=== PATIENT | male | born 1945 | race Two or more races ===

== ENCOUNTER 2020-09-22 12:08 | Outpatient (REF) | payer MEDICARE, SELFPAY ==
[2020-09-22 14:05] LABS: Cholesterol 100 mg/dL; HDL Cholesterol 36 mg/dL; LDL Cholesterol Calculated 29 mg/dl; Triglycerides 178 mg/dL
[2020-09-22 14:09] LABS: Creatinine Urine 86.28 mg/dL; Microalbum/Creatinine Ratio Ur 18.5 ug/mg cr
[2020-09-22 15:10] LABS: Prostate Specific Antigen 5.93 ng/mL (<0.05-4.0)
== END 2020-09-22 12:09 | disposition home or self-care (01) ==
LOC: HO.LAB 12:08
PROVIDERS: PCP Internal Medicine; Visit Provider Urology
DX: C61 Malignant neoplasm of prostate (principal); R97.20 Elevated prostate specific antigen [PSA]; E78.2 Mixed hyperlipidemia; I10 Essential (primary) hypertension; R73.9 Hyperglycemia, unspecified
CPT/HCPCS: 80061; 82043; 84153

== ENCOUNTER → 2020-11-04 14:14 | Outpatient (BNVA) | payer MEDICARE, SELFPAY | PROVIDERS: PCP Internal Medicine; Referring Provider Internal Medicine; Visit Provider Internal Medicine | DX: Z01.810 Encounter for preprocedural cardiovascular examination (principal); I25.119 Atherosclerotic heart disease of native coronary artery with unspecified angina pectoris | CPT/HCPCS: 93005; 99212 ==

== ENCOUNTER → 2020-11-25 09:09 | Outpatient (REF) | payer MEDICARE, SELFPAY ==
--- NOTE | 2020-11-25 | NM_ITS ---
Myocardial perfusion study Indication: Atherosclerotic cardiovascular disease to evaluate for myocardial ischemia Technique: The patient was brought in for a Lexiscan perfusion study on 11/25/2020. Patient performed low-level exercise and was injected 0.4 mg of Lexiscan intravenously. Within a minute of injection, 35 mCi of sestamibi was given intravenously. Images were obtained using the SPECT gamma camera interlaced with the gating device. Images were obtained in supine position. Resting perfusion study was performed on 11/30/2020. Patient was administered 31 mCi of sestamibi intravenously at rest. Images were then obtained in supine position. 35 Images obtained with and without CT attenuation. Total DLP 73 mGy-cm. Images were processed with the software and compared side to side in short axis, horizontal long axis and vertical long axis views. Findings: The stress perfusion study showed non attenuated images show mildly reduced uptake in the inferior, inferolateral and inferoseptal wall of the LV myocardium. Remainder of the LV myocardium is normally perfused. Attenuation corrected images show mildly reduced uptake in the apex of the LV myocardium. The gated study shows normal LV systolic function with calculated LVEF of 65%. LV cavity is normal in size. The gated study shows normal systolic wall thickening and contraction of segments. Resting study shows no change in perfusion pattern compared to stress perfusion study. Gating at rest reveals normal systolic wall motion with ejection fraction at 64%. The findings are consistent with normal myocardial perfusion. NM/NM naomi perf SPECT rest & str Impression: 1. Myocardial perfusion imaging study shows normal myocardial perfusion 2. Gated LVEF is 65% 3. Transient ischemic dilatation not present EKG is nondiagnostic for ischemia
--- NOTE | 2020-11-25 09:14 | CA_ITS ---
Transthoracic Echocardiogram Patient (Last, First, Middle): Fredy Ramirez, Gender: Male Date of : 1945 Age: 75 Procedure Date: 11/25/2020 Procedure Type: Transthoracic Echocardiogram Location: OP Height: 187.96 cm Weight: 90.72 kg BSA: 2.17 m2 Heart Rate: bpm BP: 138 / 80 mmHg Engine Assembly Supervisor: PAWAN Referring MD: Kt Cotter MD Symptoms: I25.10 - Atherosclerotic heart disease of [place] coronary artery without angina pectoris Study Quality: Good ECG Rhythm: Sinus Conclusions: - The left ventricular systolic function is normal. The visually estimated ejection fraction is between 60-65%. - No obvious valvular pathology seen on this study. Findings Left Ventricle Normal left ventricular cavity size. There is normal left ventricular wall thickness. The left ventricular systolic function is normal. The visually estimated ejection fraction is between 60-65%. There is no evidence of regional wall motion abnormalities. Based on LA size, normal RVSP there is no significant diastolic dysfunction. Tissue Doppler was not performed. Right Ventricle Normal right ventricular cavity size and systolic function. Atria The left atrium is normal in size. The right atrium is normal in size. Aortic Valve There is a normal trileaflet aortic valve. There is mild calcification of the aortic valve. There is no aortic valve stenosis. There is no aortic valve regurgitation. Mitral Valve The mitral valve appears normal. There is trace mitral valve regurgitation. There is no mitral valve stenosis. Pulmonic Valve The pulmonic valve was not well visualized. Tricuspid Valve Normal tricuspid valve structure. There is trace tricuspid valve regurgitation. The pulmonary artery systolic pressure is normal. Great Vessels The aortic annulus, sinuses of valsalva, and asc aorta are normal in size. Venous The inferior vena cava is normal in size and collapses greater than 50% with inspiration. Pericardium/Pleural There is no evidence of pericardial effusion. Prior Study Comparison No significant change compared to prior study dated: 12/20/2017. Recommendations, Care & Conclusions No obvious valvular pathology seen on this study. Measurements 2D Linear Measurements IVSd: 1.04 0.6-0.9/0.6-1.0 cm LVIDd: 5.25 3.9-5.3/4.2-5.9 cm LVIDd Index: 2.42 2.4-3.2/2.2-3.1 cm/m2 LVIDs: 2.94 2.0-3.6 cm LVPWd: 0.90 0.7-1.1 cm Ao Root: 3.00 2.1-3.5 cm LA Diam: 3.40 2.7-3.8/3.0-4.0 cm LAIDs Index: 1.57 1.5-2.3 cm/m2 LV Mass: 236.39 67-162/88-224 g LV Mass Index: 108.94 43-95/49-115 g/m2 LVOT Diam: 2.20 3.0+(-)1.3 cm 2D Systolic Function EF 4C: 61.70 >55% EF 2C: 60.00 >55% EF BiP: 60.40 >55% Mitral Valve MV Pk E: 0.83 MV PK A: 0.96 MV Decel Time: 116.00 E/A: 0.90 PHT: 34.00 MVA PHT: 6.47 Decel [place]: 7.14 Aortic Valve AoV Pk Fei: 1.74 AoV Pk Grad: 12.00 LVOT LVOT Pk Fei: 0.83 LVOT Mn Fei: 0.58 LVOT VTI: 0.19 LVOT Pk Grad: 3.00 LVOT Mn Grad: 2.00 LVOT Diam: 2.20 LVOT Area: 3.80 Diastolic Function MV Pk E: 0.83 MV Pk A: 0.96 E/A: 0.90 Tricuspid Valve TR Pk Fei: 2.38 TR Pk Grad: 23.00 RA Press: 3.00 RVSP: 26.00 Great Vessels Aorta Ao Root-2D: 3.00 2.0-3.7 cm Ao Asc: 3.60 2.1-3.4 cm Updated in Other Vendor System with Status of Final Kt Cotter MD electronically signed on 11/28/2020 12:46:32 PM with status of Final
--- NOTE | 2020-11-25 09:14 | CA_ITS ---
Acquisition Time: 2020-11-25 11:13:40 Total Exercise Time: 00:02:00 Test Indications: Chest Pain Medications: SEE H Protocol: LEXISCAN Max HR: 111 BPM 76% of Pred: 145 BPM Max BP: 122/078 mmHG Max Work Load: 1.0 METS Pharmacological stress test using Lexiscan while sitting and kicking his legs. Pt tolerated well, denies any anginal sx. EKG without any arrhythmias. Non-diagnostic for ischemia. Nuclear images to follow. Normotensive response to test. Test reviewed with Dr. Cotter. Referred By: Kt Cotter Overread By: Chacho Connell
== END ==
LOC: HO.CARD 09:09
PROVIDERS: Visit Provider Internal Medicine
DX: I20.9 Angina pectoris, unspecified (principal)
CPT/HCPCS: 78452; 93017; 93306; A9500; J0280; J2785

== ENCOUNTER → 2020-12-02 15:53 | Outpatient (BNVA) | payer MEDICARE, SELFPAY | PROVIDERS: PCP Internal Medicine; Visit Provider Urology | DX: C61 Malignant neoplasm of prostate (principal) | CPT/HCPCS: 99212 ==

== ENCOUNTER → 2020-12-14 15:17 | Outpatient (BNVA) | payer MEDICARE, SELFPAY | PROVIDERS: PCP Internal Medicine; Visit Provider Internal Medicine | DX: Z01.810 Encounter for preprocedural cardiovascular examination (principal); I25.10 Atherosclerotic heart disease of native coronary artery without angina pectoris; E11.9 Type 2 diabetes mellitus without complications; I10 Essential (primary) hypertension; E78.5 Hyperlipidemia, unspecified | CPT/HCPCS: 99212 ==

== ENCOUNTER 2021-01-28 11:29 | Outpatient (REF) | payer MEDICARE, SELFPAY ==
[2021-01-28 13:16] LABS: Estimated Average Glucose 206 mg/dL; Hemoglobin A1c % 8.8 %
[2021-01-28 13:25] LABS: Alanine Aminotransferase 18 U/L (0-40); Albumin Level 4.3 g/dL (3.5-5.0); Alkaline Phosphatase 98 U/L (39-117); Anion Gap 16 (12-20); Aspartate Amino Transferase 20 U/L (5-37); Bilirubin Total 0.2 mg/dL (0.0-1.0); Blood Urea Nitrogen 27 mg/dL (9-16); Calcium 9.3 mg/dL (8.4-10.2); Carbon Dioxide 27 mmol/L (22-29); Chloride 100 mmol/L (96-108); Estimated Glomerular Filt Rate > 60; Glucose Random 163 mg/dL (60-115); Sodium 138 mmol/L (135-145); Total Protein 7.4 g/dL (6.5-8.0)
[2021-01-28 13:46] LABS: Thyroid Stimulating Hormone 1.11 uIU/mL (0.32-4.0)
[2021-01-28 13:52] LABS: Prostate Specific Antigen 8.79 ng/mL (<0.05-4.0)
== END 2021-01-28 11:30 | disposition home or self-care (01) ==
LOC: HO.LAB 11:29
PROVIDERS: Absent Provider Urology; PCP Internal Medicine; Visit Provider Internal Medicine
DX: E03.9 Hypothyroidism, unspecified (principal); E11.65 Type 2 diabetes mellitus with hyperglycemia; I10 Essential (primary) hypertension; C61 Malignant neoplasm of prostate; Z12.5 Encounter for screening for malignant neoplasm of prostate
CPT/HCPCS: 36415; 80053; 83036; 84153; 84443

== ENCOUNTER 2021-02-10 09:05 | Day surgery (SDC) | payer MEDICARE, SELFPAY ==
[2021-02-04 11:18] VITALS: BMI 25.9
--- NOTE | 2021-02-09 10:03 | HO.ANESPROP2 ---
Documented by User: Claudia Mg 02/09/21 10:05 HPI - Anesthesia Eval Consult details Narrative: 75yo M for Colonoscopy Stable CAD - cardiac [facility] Active Problems Active Problems: All Active Problems (Updated 02/04/21 @ 11:18 by Kelle Barnes) Angina pectoris (Acute) Preoperative cardiovascular examination (Acute) Other and unspecified hyperlipidemia (Acute) Essential hypertension (Acute) Type 2 diabetes mellitus with unspecified complications (Acute) Prostate CA (Acute) Atherosclerotic cardiovascular disease (Acute) Past Medical History Medical History Arthritis Asthma Atherosclerotic cardiovascular disease CVA (cerebral vascular accident) Depression Essential hypertension GERD (gastroesophageal reflux disease) Other and unspecified hyperlipidemia Prostate CA Type 2 diabetes mellitus with unspecified complications Family History Family History Father Cancer Mother Cardiac disease Surgical History Surgical History H/O colonoscopy History of prostate surgery Hx of cardiac catheterization Hx of prostate biopsy Social History Social History Smoking Status: Former smoker Smoking Quit Date: >10 yr ago Use of substances other than those prescribed or required for medical reasons: No Advance Directives Information Provided: No Meds Allergies Allergy/AdvReac Type Severity Reaction Status Date / Time acebutolol Allergy Unknown Verified 11/13/16 00:00 almond Allergy Unknown ITCHINESS Unverified 08/12/20 15:13 apple [APPLE] Allergy Unknown ITCHINESS Unverified 08/12/20 15:13 kiwi [KIWI] Allergy Unknown ITCHINESS Unverified 08/12/20 15:13 pear [PEAR] Allergy Unknown ITCHINESS Unverified 08/12/20 15:13 strawberry [STRAWBERRY] Allergy Unknown ITCHINESS Unverified 08/12/20 15:13 avocado [AVOCADO] AdvReac Intermediate ITCHINESS Unverified 08/12/20 15:13 Iodinated Contrast Media AdvReac Unknown SHAKING Unverified 08/12/20 15:13 [IV Dye, Iodine Containing] ivp dye Allergy Unknown Uncoded 05/26/20 00:00 Home Medications Medication Instructions Recorded Confirmed Last Taken Type acetaminophen 650 mg 650 mg PO TID tab 11/04/20 02/04/21 Unknown History tablet,extended release albuterol sulfate 90 mcg/actuation 90 mcg INHALATION Q4H PRN 11/04/20 02/04/21 Unknown History aerosol inhaler aspirin 81 mg tablet,delayed 81 mg PO DAILY 11/04/20 02/04/21 Unknown History release glipizide 5 mg tablet, extended 5 mg PO DAILY 11/04/20 02/04/21 Unknown History release 24 hr levothyroxine 137 mcg tablet 137 mcg PO DAILY 11/04/20 02/04/21 Unknown History losartan 100 1 tab PO DAILY 11/04/20 02/04/21 Unknown History mg-hydrochlorothiazide 25 mg tablet metformin 500 mg tablet,extended 1,000 mg PO BID 11/04/20 02/04/21 Unknown History release 24 hr pantoprazole 40 mg tablet,delayed 40 mg PO DAILY 11/04/20 02/04/21 Unknown History release rosuvastatin 40 mg tablet 40 mg PO DAILY 11/04/20 02/04/21 Unknown History sertraline 50 mg tablet 50 mg PO DAILY 11/04/20 02/04/21 Unknown History sitagliptin 100 mg tablet 100 mg PO DAILY 11/04/20 02/04/21 Unknown History tamsulosin 0.4 mg capsule 0.4 mg PO DAILY 11/04/20 02/04/21 Unknown History Exam Exam Date and Time: February 09, 2021 1003 Height,Weight and Vital Signs: Height 6 ft 2 in Weight 91.5 kg Pertinent Lab Results Pertinent Lab Results: Laboratory Tests 01/28/21 12:05 Sodium 138 Potassium 5.0 Chloride 100 Carbon Dioxide 27 BUN 27 H Creatinine 0.96 Narrative Narrative: Per cardiology clearance note: In the cardiac catheterization from 2012, he had a 65% lesion in the mid LAD; mild disease in the left main and circumflex; 60% mid 1st diagonal; culprit lesion was in the 2nd diagonal but not intervened. Echocardiogram 10/2020-LVEF 60-65%; no significant valvular pathology. Myocardial perfusion imaging study 10/2020-normal perfusion with normal gated LVEF. EKG 10/2020 NSR @ [address] abnormality Assessment and Plan Assessment Anesthesia Assessment: Chart Reviewed Documented by User: Maldonado Case 02/10/21 09:59 PMFSH Past Medical History Medical History Arthritis Asthma Atherosclerotic cardiovascular disease CVA (cerebral vascular accident) Depression Essential hypertension GERD (gastroesophageal reflux disease) Other and unspecified hyperlipidemia Prostate CA Type 2 diabetes mellitus with unspecified complications Family History Family History Father Cancer Mother Cardiac disease Surgical History Surgical History H/O colonoscopy History of prostate surgery Hx of cardiac catheterization Hx of prostate biopsy Social History Social History Smoking Status: Former smoker Smoking Quit Date: >10 yr ago Use of substances other than those prescribed or required for medical reasons: No Advance Directives Information Provided: No Meds Allergies Allergy/AdvReac Type Severity Reaction Status Date / Time acebutolol Allergy Unknown Verified 11/13/16 00:00 almond Allergy Unknown ITCHINESS Unverified 08/12/20 15:13 apple [APPLE] Allergy Unknown ITCHINESS Unverified 08/12/20 15:13 kiwi [KIWI] Allergy Unknown ITCHINESS Unverified 08/12/20 15:13 pear [PEAR] Allergy Unknown ITCHINESS Unverified 08/12/20 15:13 strawberry [STRAWBERRY] Allergy Unknown ITCHINESS Unverified 08/12/20 15:13 avocado [AVOCADO] AdvReac Intermediate ITCHINESS Unverified 08/12/20 15:13 Iodinated Contrast Media AdvReac Unknown SHAKING Unverified 08/12/20 15:13 [IV Dye, Iodine Containing] ivp dye Allergy Unknown Uncoded 05/26/20 00:00 Home Medications Medication Instructions Recorded Confirmed Last Taken Type acetaminophen 650 mg 650 mg PO TID tab 11/04/20 02/04/21 Unknown History tablet,extended release albuterol sulfate 90 mcg/actuation 90 mcg INHALATION Q4H PRN 11/04/20 02/04/21 Unknown History aerosol inhaler aspirin 81 mg tablet,delayed 81 mg PO DAILY 11/04/20 02/04/21 Unknown History release glipizide 5 mg tablet, extended 5 mg PO DAILY 11/04/20 02/04/21 Unknown History release 24 hr levothyroxine 137 mcg tablet 137 mcg PO DAILY 11/04/20 02/04/21 Unknown History losartan 100 1 tab PO DAILY 11/04/20 02/04/21 Unknown History mg-hydrochlorothiazide 25 mg tablet metformin 500 mg tablet,extended 1,000 mg PO BID 11/04/20 02/04/21 Unknown History release 24 hr pantoprazole 40 mg tablet,delayed 40 mg PO DAILY 11/04/20 02/04/21 Unknown History release rosuvastatin 40 mg tablet 40 mg PO DAILY 11/04/20 02/04/21 Unknown History sertraline 50 mg tablet 50 mg PO DAILY 11/04/20 02/04/21 Unknown History sitagliptin 100 mg tablet 100 mg PO DAILY 11/04/20 02/04/21 Unknown History tamsulosin 0.4 mg capsule 0.4 mg PO DAILY 11/04/20 02/04/21 Unknown History Exam Airway Mallampati Class: II TM Dist: >3cm Neck ROM: Full Loose/Missing/Broken Teeth: Yes Heart: [id number] Lungs: cta b/l Assessment and Plan Assessment Anesthesia Assessment: Anesthesia Plan Discussed, PAT Visit and Chart Reviewed Final Anesthetic Review NPO: Yes ASA Class: III Final Preanesthetic Review: No Changes in Pt Med Stat, Meds/Allgs Chart Reviewed, Consent Obtained/Reviewed and Anes Risks/Benef Reviewed Patient Risk: Intermediate Procedure Risk: Low Assessment/Block/Sedation in SS: Assess/Block/Sedation-SS Anesthetic Plan Anesthetic Plan: MAC: and Agree w/ Assess. and Plan Disposition: Standard PACU
[2021-02-10 09:41] VITALS: BP 140/70; PULSE 62; RESP 18; TEMP 36.7; O2SAT 95
[2021-02-10 09:46] LABS: Glucose, Whole Blood 174 mg/dL (60-115)
[2021-02-10] MEDS: Lactated Ringers 1,000 ML 50 ML IV (10:02)
--- NOTE | 2021-02-10 10:32 | P.HPSUR_ITS ---
Pre-Procedural Eval Section B Chief Complaint: Screening Details of Present Illness: Colon cancer screening No clinical changes from . Cardiac clearance obtained Relevant Family History (Specify if Yes): No Relevant Social History: None Present Medications: see Short Stay [facility] assessment Medical History: Significant History (CAD; Diabetes, Prostate CA, Asthma, Stroke-1992) History of Previous Operations: Relevant previous surgery/procedure and date(s) (2008--Colonoscopy(N) diverticulosis.) Allergies: Allergies Allergy/AdvReac Type Severity Reaction Status Date / Time acebutolol Allergy Unknown Verified 11/13/16 00:00 almond Allergy Unknown ITCHINESS Unverified 08/12/20 15:13 apple [APPLE] Allergy Unknown ITCHINESS Unverified 08/12/20 15:13 kiwi [KIWI] Allergy Unknown ITCHINESS Unverified 08/12/20 15:13 pear [PEAR] Allergy Unknown ITCHINESS Unverified 08/12/20 15:13 strawberry [STRAWBERRY] Allergy Unknown ITCHINESS Unverified 08/12/20 15:13 avocado [AVOCADO] AdvReac Intermediate ITCHINESS Unverified 08/12/20 15:13 Iodinated Contrast Media AdvReac Unknown SHAKING Unverified 08/12/20 15:13 [IV Dye, Iodine Containing] ivp dye Allergy Unknown Uncoded 05/26/20 00:00 Review of Systems Sugical H&P ROS: Negative: Constitution, Cardiovascular, Respiratory and Gastrointestinal Exam Surgical H&P Exam: Normal: HEENT, Normal: Heart, Normal: Lungs and Normal: Extremities Plan Diagnosis/Plan: Unchanged I have reviewed the history and physical and performed a pertinent physical examination on my patient. No changes have occurred unless specified.yes
[2021-02-10 11:11] VITALS: BP 114/58; PULSE 56; RESP 16; TEMP 36.3; O2SAT 98
--- NOTE | 2021-02-10 11:11 | PM.OP ---
Brief Operative Note Date of Service: 02/10/21 Pre-op diagnosis: Colon cancer screening--10years Post-op diagnosis: other (Polyp, Diverticulosis) Procedure: Colonoscopy with excisional polypectomy Implants: NONE Surgeon: Marti Rowland MD Anesthesia: MAC (Cuff,Burling And Joining Supervisor) Estimated blood loss (mL): 5 Pathology: other (20 cm polyp) Condition: stable Disposition: PACU
[2021-02-10 11:26] VITALS: BP 138/50; PULSE 64; RESP 16; TEMP 36.3; O2SAT 95
--- NOTE | 2021-02-10 12:08 | P.OP_ITS ---
Operative Note Operative Note Date of Service: 02/10/21 Narrative: Pre op diagnosis: Colon cancer screening--10years Post-op diagnosis: other (Polyp, Diverticulosis) Procedure: Colonoscopy with excisional polypectomy Implants: NONE Surgeon: Marti Rowland MD Anesthesia: MAC (Cuff,Equine Pharmacology Technician) VICENTA: prostate, smooth, ?right lobe 50% increase size Scope easily advanced into rectosigmoid, descending transverse colon. Left sided diverticulosis was identified. Advanced through hepatic flexure into cecum. Appendiceal orifice seen, ileocecal valve well seen. PREP: EXCELLENT. Scope withdrawn, good rotational views --polyp noted curve @ 20cm. Removed excisionally with cold bx forceps. Rest of colon was clear. ARV seen and normal. Patient tolerated procedure well. Estimated blood loss (mL): 5 Pathology: other (20 cm polyp) Condition: stable Disposition: PACU Patient will have a short followup visit to review findings. He has significant comorbidities so repeat asymptomatic screening may not be appropriat @ his age.
== END 2021-02-10 12:05 | disposition home or self-care (01) ==
PROVIDERS: PCP Internal Medicine; Visit Provider Internal Medicine Gastroenterology
PROC: 0DJD8ZZ Inspection of Lower Intestinal Tract, Via Natural or Artificial Opening Endoscopic (ICD-10-PCS; CPT 45378; principal; 2021-02-10 10:20)
DX: Z12.11 Encounter for screening for malignant neoplasm of colon (principal); K63.5 Polyp of colon; K57.30 Diverticulosis of large intestine without perforation or abscess without bleeding; K21.9 Gastro-esophageal reflux disease without esophagitis; J45.909 Unspecified asthma, uncomplicated; I25.10 Atherosclerotic heart disease of native coronary artery without angina pectoris; E11.9 Type 2 diabetes mellitus without complications; Z86.73 Personal history of transient ischemic attack (TIA), and cerebral infarction without residual deficits; Z85.46 Personal history of malignant neoplasm of prostate
CPT/HCPCS: 45380; 82947; 88305

== ENCOUNTER → 2021-02-17 13:14 | Outpatient (BNVA) | payer MEDICARE, SELFPAY | PROVIDERS: PCP Internal Medicine; Visit Provider Urology | DX: Z13.89 Encounter for screening for other disorder (principal) | CPT/HCPCS: 99212 ==

== ENCOUNTER 2021-07-05 13:40 | Outpatient (REF) | payer MEDICARE, SELFPAY ==
[2021-07-05 14:27] LABS: Estimated Average Glucose 252 mg/dL; Hemoglobin A1c % 10.4 %
[2021-07-05 14:52] LABS: Alanine Aminotransferase 18 U/L (0-40); Albumin Level 4.4 g/dL (3.5-5.0); Alkaline Phosphatase 110 U/L (39-117); Anion Gap 15 (12-20); Aspartate Amino Transferase 25 U/L (5-37); Bilirubin Total < 0.2 mg/dL (0.0-1.0); Blood Urea Nitrogen 27 mg/dL (9-16); Calcium 10.2 mg/dL (8.4-10.2); Carbon Dioxide 26 mmol/L (22-29); Chloride 100 mmol/L (96-108); Estimated Glomerular Filt Rate 57; Glucose Random 252 mg/dL (60-115); Potassium 5.1 mmol/L (3.3-5.1); Sodium 136 mmol/L (135-145); Total Protein 7.9 g/dL (6.5-8.0)
== END 2021-07-05 13:41 | disposition home or self-care (01) ==
LOC: HO.LAB 13:40
PROVIDERS: Absent Provider Internal Medicine; PCP Internal Medicine; Visit Provider Urology
DX: N40.1 Benign prostatic hyperplasia with lower urinary tract symptoms (principal); N13.8 Other obstructive and reflux uropathy; C61 Malignant neoplasm of prostate; E03.9 Hypothyroidism, unspecified; E11.65 Type 2 diabetes mellitus with hyperglycemia; I10 Essential (primary) hypertension
CPT/HCPCS: 36415; 80053; 83036; 84153

== ENCOUNTER → 2021-10-12 15:05 | Outpatient (BNVA) | payer MEDICARE, SELFPAY | PROVIDERS: PCP Internal Medicine; Visit Provider Internal Medicine | DX: I25.10 Atherosclerotic heart disease of native coronary artery without angina pectoris (principal); I10 Essential (primary) hypertension; E11.8 Type 2 diabetes mellitus with unspecified complications; E78.5 Hyperlipidemia, unspecified; R00.2 Palpitations | CPT/HCPCS: 93005; 99212 ==

== ENCOUNTER 2021-10-25 12:12 | Outpatient (REF) | payer MEDICARE, SELFPAY ==
[2021-10-25 13:34] LABS: Estimated Average Glucose 252 mg/dL; Hemoglobin A1c % 10.4 %
[2021-10-25 14:17] LABS: Creatinine Urine 68.58 mg/dL; Microalbum/Creatinine Ratio Ur 27.7 ug/mg cr
[2021-10-25 14:25] LABS: Alanine Aminotransferase 14 U/L (0-40); Albumin Level 4.4 g/dL (3.5-5.0); Alkaline Phosphatase 106 U/L (39-117); Anion Gap 15 (12-20); Aspartate Amino Transferase 18 U/L (5-37); Bilirubin Total 0.4 mg/dL (0.0-1.0); Blood Urea Nitrogen 27 mg/dL (9-16); Calcium 9.8 mg/dL (8.4-10.2); Carbon Dioxide 26 mmol/L (22-29); Chloride 100 mmol/L (96-108); Cholesterol 108 mg/dL; Estimated Glomerular Filt Rate > 60; Glucose Random 234 mg/dL (60-115); HDL Cholesterol 32 mg/dL; LDL Cholesterol Calculated 24 mg/dl; Potassium 4.9 mmol/L (3.3-5.1); Sodium 136 mmol/L (135-145); Total Protein 7.7 g/dL (6.5-8.0); Triglycerides 262 mg/dL
[2021-10-25 14:44] LABS: Thyroid Stimulating Hormone 1.94 uIU/mL (0.32-4.0)
== END 2021-10-25 12:13 | disposition home or self-care (01) ==
LOC: HO.LAB 12:12
PROVIDERS: PCP Internal Medicine; Visit Provider Internal Medicine
DX: Z00.01 Encounter for general adult medical examination with abnormal findings (principal); E03.9 Hypothyroidism, unspecified; E11.65 Type 2 diabetes mellitus with hyperglycemia; I10 Essential (primary) hypertension
CPT/HCPCS: 36415; 80053; 80061; 82043; 83036; 84443

== ENCOUNTER 2021-11-15 12:35 | Outpatient (REF) | payer MEDICARE, SELFPAY ==
[2021-11-15 13:32] LABS: Estimated Average Glucose 237 mg/dL; Hemoglobin A1c % 9.9 %
[2021-11-15 13:42] LABS: Alanine Aminotransferase 14 U/L (0-40); Albumin Level 4.5 g/dL (3.5-5.0); Alkaline Phosphatase 92 U/L (39-117); Anion Gap 14 (12-20); Aspartate Amino Transferase 19 U/L (5-37); Bilirubin Total 0.4 mg/dL (0.0-1.0); Blood Urea Nitrogen 29 mg/dL (9-16); Calcium 9.9 mg/dL (8.4-10.2); Carbon Dioxide 27 mmol/L (22-29); Chloride 102 mmol/L (96-108); Estimated Glomerular Filt Rate > 60; Glucose Random 234 mg/dL (60-115); Potassium 4.6 mmol/L (3.3-5.1); Sodium 138 mmol/L (135-145); Total Protein 7.6 g/dL (6.5-8.0)
[2021-11-15 14:02] LABS: PSA,Total (Free>4and<10) 3.56 ng/mL (0.00-4.00)
== END 2021-11-15 12:36 | disposition home or self-care (01) ==
LOC: HO.LAB 12:35
PROVIDERS: Absent Provider Urology; PCP Internal Medicine; Visit Provider Internal Medicine
DX: Z12.5 Encounter for screening for malignant neoplasm of prostate (principal); C61 Malignant neoplasm of prostate; E03.9 Hypothyroidism, unspecified; E11.65 Type 2 diabetes mellitus with hyperglycemia; I10 Essential (primary) hypertension
CPT/HCPCS: 36415; 80053; 83036; 84153

== ENCOUNTER → 2021-11-16 13:21 | Outpatient (BNVA) | payer MEDICARE, SELFPAY | PROVIDERS: PCP Internal Medicine; Visit Provider Urology | DX: C61 Malignant neoplasm of prostate (principal) | CPT/HCPCS: 99212 ==

== ENCOUNTER → 2021-12-14 11:21 | Outpatient (REF) | payer MEDICARE, SELFPAY ==
--- NOTE | 2021-12-14 11:24 | HM_ITS ---
Total monitoring time 3 days and 11 hours. Underlying rhythm is sinus. Minimum heart rate 44/Min. Maximum 89/Min. Average 60/Min. No atrial fibrillation or flutter or AV blocks or pauses. Rare supraventricular ectopy with minimal burden. Rare ventricular ectopy with minimal burden. No patient events. MTDD
== END ==
LOC: HO.CARD 11:21
PROVIDERS: Visit Provider Internal Medicine
DX: R00.2 Palpitations (principal)
CPT/HCPCS: 93242

== ENCOUNTER 2022-03-14 14:26 | Outpatient (REF) | payer OTHER, SELFPAY ==
[2022-03-14 15:23] LABS: Prostate Specific Antigen 3.79 ng/mL (<0.05-4.0)
== END 2022-03-14 14:27 | disposition home or self-care (01) ==
LOC: HO.LAB 14:26
PROVIDERS: PCP Internal Medicine; Visit Provider Urology
DX: Z12.5 Encounter for screening for malignant neoplasm of prostate (principal); C61 Malignant neoplasm of prostate
CPT/HCPCS: 36415; 84153

== ENCOUNTER → 2022-03-15 13:56 | Outpatient (BNVA) | payer OTHER, SELFPAY | PROVIDERS: PCP Internal Medicine; Visit Provider Urology | DX: Z13.89 Encounter for screening for other disorder (principal) | CPT/HCPCS: Q3014 ==

== ENCOUNTER 2022-04-18 10:14 | Outpatient (REF) | payer OTHER, SELFPAY ==
[2022-04-18 10:56] LABS: Estimated Average Glucose 214 mg/dL; Hemoglobin A1c % 9.1 %
[2022-04-18 11:07] LABS: Alanine Aminotransferase 16 U/L (0-40); Albumin Level 4.3 g/dL (3.5-5.0); Alkaline Phosphatase 81 U/L (39-117); Anion Gap 12 (12-20); Aspartate Amino Transferase 19 U/L (5-37); Bilirubin Total 0.3 mg/dL (0.0-1.0); Blood Urea Nitrogen 17 mg/dL (9-16); Calcium 9.5 mg/dL (8.4-10.2); Carbon Dioxide 27 mmol/L (22-29); Chloride 105 mmol/L (96-108); Estimated Glomerular Filt Rate > 60; Glucose Random 146 mg/dL (60-115); Potassium 4.9 mmol/L (3.3-5.1); Sodium 139 mmol/L (135-145); Total Protein 7.6 g/dL (6.5-8.0)
[2022-04-18 11:30] LABS: Thyroid Stimulating Hormone 2.18 uIU/mL (0.32-4.0)
[2022-04-18 11:30] LABS: Prostate Specific Antigen 3.79 ng/mL (<0.05-4.0)
== END 2022-04-18 10:15 | disposition home or self-care (01) ==
LOC: HO.LAB 10:14
PROVIDERS: Absent Provider Internal Medicine; PCP Internal Medicine; Visit Provider Urology
DX: Z12.5 Encounter for screening for malignant neoplasm of prostate (principal); C61 Malignant neoplasm of prostate; E03.9 Hypothyroidism, unspecified; E11.65 Type 2 diabetes mellitus with hyperglycemia; E78.00 Pure hypercholesterolemia, unspecified; Z79.4 Long term (current) use of insulin
CPT/HCPCS: 36415; 80053; 83036; 84153; 84443

== ENCOUNTER 2022-07-02 18:11 | Emergency (ER) | payer OTHER, SELFPAY ==
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
[2022-07-02 18:22] VITALS: BP 130/82; PULSE 76; O2SAT 98
[2022-07-02 18:38] VITALS: BP 142/74; PULSE 67; RESP 18; TEMP 36.1; O2SAT 94; BMI 25.7
[2022-07-02 19:03] LABS: MANUAL DIFF FLAG NO
[2022-07-02 19:04] LABS: Basophils Absolute Auto 0.1 X10*3/uL (0.0-0.2); Basophils Percent Auto 0.7 % (0-2); Eosinophils Absolute Auto 0.3 X10*3/uL (0.0-0.4); Hematocrit 38.4 % (42.0-52.0); Hemoglobin 12.5 g/dl (14.0-18.0); Imm Gran Abs Auto 0.02 X10*3/uL (0.00-0.03); Imm Gran Pct Auto 0.3 % (0.0-0.4); Lymphocytes Percent Auto 29.5 % (20-40); Mean Corpuscular HGB Conc 32.6 g/dl (31.0-36.0); Mean Corpuscular Hemoglobin 26.8 pg (27.0-33.0); Mean Corpuscular Volume 82.2 fL (80.0-98.0); Mean Platelet Volume 9.8 fL (9.4-12.4); Monocytes Percent Auto 13.9 % (2-11); Neutrophils Absolute Auto 3.5 x10*3/uL (2.0-8.3); Neutrophils Percent Auto 51.6 % (45-73); Platelet Count 240 X10*3/uL (160-400); Red Blood Count 4.67 X10*6/uL (4.60-5.80); Red Cell Distribution Width 14.4 % (11.0-16.0); White Blood Count 6.8 X10*3/uL (4.8-10.8)
[2022-07-02 19:29] LABS: Alanine Aminotransferase 14 U/L (0-40); Albumin Level 4.4 g/dL (3.5-5.0); Alkaline Phosphatase 86 U/L (39-117); Anion Gap 15 (12-20); Aspartate Amino Transferase 22 U/L (5-37); Bilirubin Total 0.4 mg/dL (0.0-1.0); Blood Urea Nitrogen 28 mg/dL (9-16); Calcium 9.5 mg/dL (8.4-10.2); Carbon Dioxide 27 mmol/L (22-29); Chloride 103 mmol/L (96-108); Creatinine Clr Calc Pharmacy 52.1; Estimated Glomerular Filt Rate 49; Glucose Random 119 mg/dL (60-115); Potassium 4.9 mmol/L (3.3-5.1); Sodium 140 mmol/L (135-145); Total Protein 7.6 g/dL (6.5-8.0)
[2022-07-02 21:06] VITALS: BP 139/69; PULSE 54; TEMP 37; O2SAT 95
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
[2022-07-02] MEDS: Ibuprofen 600 MG TABLET PO (22:54)
== END 2022-07-03 01:56 | disposition home or self-care (01) ==
PROVIDERS: Emergency Provider Emergency Medicine Emergency Medical Services; PCP Internal Medicine
DX: S20.212A Contusion of left front wall of thorax, initial encounter (principal); S60.222A Contusion of left hand, initial encounter; V43.52XA Car driver injured in collision with other type car in traffic accident, initial encounter; W22.11XA Striking against or struck by driver side automobile airbag, initial encounter; N28.89 Other specified disorders of kidney and ureter; E11.9 Type 2 diabetes mellitus without complications; Y93.89 Activity, other specified; Y92.414 Local residential or business street as the place of occurrence of the external cause; Y99.9 Unspecified external cause status; Z79.4 Long term (current) use of insulin
CPT/HCPCS: 36415; 71045; 71250; 73130; 80053; 85025; 93005; 99284

== ENCOUNTER 2022-07-04 20:05 | Emergency (ER) | payer OTHER, SELFPAY ==
--- NOTE | ~2022-07-04 | XR_ITS ---
EXAMINATION: XR CHEST CLINICAL INFORMATION: Chest pain COMPARISON: 07/02/2022 TECHNIQUE: Frontal view of the chest was obtained. FINDINGS: No significant abnormality is noted involving the heart, lungs, mediastinum, bony thorax or soft tissues. XR/XR chest 1V IMPRESSION: No acute intrathoracic disease.
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
[2022-07-04 20:33] VITALS: BP 132/80; PULSE 62; O2SAT 95
[2022-07-04 20:53] VITALS: BP 142/68; PULSE 61; RESP 18; TEMP 36; O2SAT 96; BMI 26.3
--- NOTE | 2022-07-04 20:56 | ECG_ITS ---
Test Reason : CHEST PAIN Blood Pressure : / mmHG Vent. Rate : 069 BPM Atrial Rate : 069 BPM P-R Int : 168 ms QRS Dur : 098 ms QT Int : 410 ms P-R-T Axes : 032 000 110 degrees QTc Int : 439 ms Normal sinus rhythm Nonspecific ST and T wave abnormality Borderline ECG When compared with ECG of 02-JUL-2022 18:50, No significant change was found Referred By: Eneida Rivera Electronically Signed By:JOEL DOTY
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
[2022-07-04 21:33] LABS: MANUAL DIFF FLAG NO
[2022-07-04 21:37] LABS: Basophils Percent Auto 0.6 % (0-2); Eosinophils Absolute Auto 0.2 X10*3/uL (0.0-0.4); Eosinophils Percent Auto 3.6 % (0-4); Hematocrit 38.7 % (42.0-52.0); Hemoglobin 12.5 g/dl (14.0-18.0); Imm Gran Abs Auto 0.02 X10*3/uL (0.00-0.03); Imm Gran Pct Auto 0.3 % (0.0-0.4); Lymphocytes Absolute Auto 1.4 X10*3/uL (1.2-4.9); Lymphocytes Percent Auto 22.4 % (20-40); Mean Corpuscular HGB Conc 32.3 g/dl (31.0-36.0); Mean Corpuscular Hemoglobin 26.5 pg (27.0-33.0); Monocytes Percent Auto 15.3 % (2-11); Neutrophils Absolute Auto 3.7 x10*3/uL (2.0-8.3); Neutrophils Percent Auto 57.8 % (45-73); Platelet Count 238 X10*3/uL (160-400); Red Blood Count 4.72 X10*6/uL (4.60-5.80); Red Cell Distribution Width 14.1 % (11.0-16.0); White Blood Count 6.4 X10*3/uL (4.8-10.8)
[2022-07-04 21:56] LABS: Anion Gap 13 (12-20); Blood Urea Nitrogen 28 mg/dL (9-16); Carbon Dioxide 26 mmol/L (22-29); Chloride 102 mmol/L (96-108); Creatinine Clr Calc Pharmacy 65.8; Estimated Glomerular Filt Rate > 60; Glucose Random 305 mg/dL (60-115); Potassium 4.3 mmol/L (3.3-5.1); Sodium 137 mmol/L (135-145)
[2022-07-04 22:18] LABS: D Dimer High Sensitivity 251 NG/ML
[2022-07-04 22:29] LABS: Troponin-I High Sensitivity < 3.5 ng/L (<3.5-35.0)
== END 2022-07-04 23:41 | disposition home or self-care (01) ==
PROVIDERS: Emergency Provider Emergency Medicine; PCP Internal Medicine
DX: S20.212A Contusion of left front wall of thorax, initial encounter (principal); S60.222A Contusion of left hand, initial encounter; V43.52XA Car driver injured in collision with other type car in traffic accident, initial encounter; M25.532 Pain in left wrist; I10 Essential (primary) hypertension; E11.9 Type 2 diabetes mellitus without complications; Y93.9 Activity, unspecified; Y92.410 Unspecified street and highway as the place of occurrence of the external cause; Y99.9 Unspecified external cause status; Z86.73 Personal history of transient ischemic attack (TIA), and cerebral infarction without residual deficits
CPT/HCPCS: 36415; 71045; 80048; 84484; 85025; 85379; 93005; 93971; 99283; 99284

== ENCOUNTER → 2022-07-19 11:44 | Outpatient (BNVA) | payer OTHER, SELFPAY | PROVIDERS: PCP Internal Medicine; Visit Provider Urology | DX: N28.1 Cyst of kidney, acquired (principal) | CPT/HCPCS: 99212 ==

== ENCOUNTER 2022-08-25 14:56 | Outpatient (REF) | payer OTHER, SELFPAY ==
--- NOTE | ~2022-08-25 | MR_ITS ---
EXAMINATION: MR ABDOMEN WITHOUT AND WITH CONTRAST CLINICAL INFORMATION: Renal cyst. COMPARISON: Chest CT June 2022. TECHNIQUE: MR abdomen was performed without and with use of 10 mL intravenous Gadavist gadolinium contrast. Postcontrast images are performed in multiphase dynamic sequences. Imaging was performed in 3 planes. FINDINGS: LUNG BASES: The visualized lung bases are unremarkable. LIVER, GALLBLADDER, AND BILIARY TREE: The liver is normal in size and shape. There is slight signal loss in the liver on [id number] sequences suggestive of fatty infiltration. There are small gallstones in the gallbladder. There is no biliary duct dilatation. PANCREAS: Unremarkable. SPLEEN: Normal. ADRENAL GLANDS: Normal. KIDNEYS AND URETERS: There is a 5 x 5.5 cm cyst exophytic to the medial upper pole of the left kidney. This is intermediate signal on T1-weighted sequences. This is high signal on T2-weighted sequences. This demonstrates a single thin nonenhancing septation. This demonstrates borderline delayed enhancement, Hounsfield units precontrast measure 168 and Hounsfield units postcontrast measure between 180 and 190. There is a 1 cm simple cyst exophytic to the lower pole of the left kidney. The right kidney is normal-appearing. GASTROINTESTINAL TRACT: No bowel obstruction. No ascites or fluid collection. ABDOMINAL WALL: No significant hernia is appreciated. LYMPH NODES: No lymphadenopathy. VASCULAR: Atherosclerotic disease of the aorta. No aneurysm. OSSEOUS STRUCTURES: Marrow signal normal. MR/MR abdomen wo/w con IMPRESSION: 5 x 5.5 cm complex cyst in the upper pole of the left kidney. 6-12 month imaging followup recommended. 1 cm simple cyst exophytic to the lower pole of the left kidney. Fatty infiltration of the liver. Gallstones.
== END 2022-08-25 14:57 | disposition home or self-care (01) ==
LOC: HO.MRI 14:56
PROVIDERS: Visit Provider Urology
DX: N28.1 Cyst of kidney, acquired (principal)
CPT/HCPCS: 74183; A9585

== ENCOUNTER → 2022-08-31 13:11 | Outpatient (BNVA) | payer OTHER, SELFPAY | PROVIDERS: PCP Internal Medicine; Visit Provider Urology | DX: C61 Malignant neoplasm of prostate (principal); N28.1 Cyst of kidney, acquired | CPT/HCPCS: 99212 ==

== ENCOUNTER 2022-09-18 10:36 | Outpatient (REF) | payer OTHER, SELFPAY ==
[2022-09-18 10:55] LABS: MANUAL DIFF FLAG NO
[2022-09-18 11:44] LABS: Basophils Absolute Auto 0.1 X10*3/uL (0.0-0.2); Eosinophils Absolute Auto 0.3 X10*3/uL (0.0-0.4); Eosinophils Percent Auto 3.7 % (0-4); Hematocrit 40.1 % (42.0-52.0); Hemoglobin 12.8 g/dl (14.0-18.0); Imm Gran Abs Auto 0.03 X10*3/uL (0.00-0.03); Imm Gran Pct Auto 0.4 % (0.0-0.4); Lymphocytes Absolute Auto 1.9 X10*3/uL (1.2-4.9); Lymphocytes Percent Auto 22.5 % (20-40); Mean Corpuscular HGB Conc 31.9 g/dl (31.0-36.0); Mean Corpuscular Hemoglobin 26.2 pg (27.0-33.0); Mean Platelet Volume 10.3 fL (9.4-12.4); Monocytes Percent Auto 11.9 % (2-11); Neutrophils Percent Auto 60.5 % (45-73); Platelet Count 277 X10*3/uL (160-400); Red Blood Count 4.89 X10*6/uL (4.60-5.80); Red Cell Distribution Width 14.2 % (11.0-16.0); White Blood Count 8.3 X10*3/uL (4.8-10.8)
[2022-09-18 11:52] LABS: Estimated Average Glucose 217 mg/dL; Hemoglobin A1c % 9.2 %
[2022-09-18 12:34] LABS: Thyroid Stimulating Hormone 1.27 uIU/mL (0.32-4.0)
[2022-09-18 12:35] LABS: Alanine Aminotransferase 15 U/L (0-40); Albumin Level 4.4 g/dL (3.5-5.0); Alkaline Phosphatase 94 U/L (39-117); Anion Gap 16 (12-20); Aspartate Amino Transferase 22 U/L (5-37); Bilirubin Total 0.3 mg/dL (0.0-1.0); Blood Urea Nitrogen 17 mg/dL (9-16); Calcium 9.6 mg/dL (8.4-10.2); Carbon Dioxide 26 mmol/L (22-29); Chloride 102 mmol/L (96-108); Cholesterol 123 mg/dL; Estimated Glomerular Filt Rate > 60; Glucose Random 202 mg/dL (60-115); HDL Cholesterol 32 mg/dL; LDL Cholesterol Calculated 27 mg/dl; Potassium 4.9 mmol/L (3.3-5.1); Sodium 139 mmol/L (135-145); Total Protein 7.6 g/dL (6.5-8.0); Triglycerides 324 mg/dL
[2022-09-18 12:40] LABS: Vitamin B12 468 pg/mL (200-900)
== END 2022-09-18 10:37 | disposition home or self-care (01) ==
LOC: HO.LAB 10:36
PROVIDERS: PCP Internal Medicine; Visit Provider Internal Medicine
DX: E03.9 Hypothyroidism, unspecified (principal); E11.65 Type 2 diabetes mellitus with hyperglycemia; E78.00 Pure hypercholesterolemia, unspecified; I10 Essential (primary) hypertension; Z85.46 Personal history of malignant neoplasm of prostate; Z12.5 Encounter for screening for malignant neoplasm of prostate
CPT/HCPCS: 36415; 80053; 80061; 82607; 83036; 84153; 84443; 85025

== ENCOUNTER 2023-05-16 11:05 | Outpatient (REF) | payer OTHER, SELFPAY ==
[2023-05-16 12:32] LABS: Prostate Specific Antigen 5.72 ng/mL (<0.05-4.0)
== END 2023-05-16 11:06 | disposition home or self-care (01) ==
LOC: HO.LAB 11:05
PROVIDERS: PCP Internal Medicine; Visit Provider Urology
DX: Z12.5 Encounter for screening for malignant neoplasm of prostate (principal); C61 Malignant neoplasm of prostate
CPT/HCPCS: 36415; 84153

== ENCOUNTER 2023-06-05 11:01 | Outpatient (REF) | payer OTHER, SELFPAY ==
[2023-06-05 11:31] LABS: MANUAL DIFF FLAG NO
[2023-06-05 12:25] LABS: Basophils Absolute Auto 0.1 X10*3/uL (0.0-0.2); Basophils Percent Auto 0.8 % (0-2); Eosinophils Absolute Auto 0.3 X10*3/uL (0.0-0.4); Eosinophils Percent Auto 4.1 % (0-4); Hematocrit 39.1 % (42.0-52.0); Hemoglobin 12.2 g/dl (14.0-18.0); Imm Gran Abs Auto 0.01 X10*3/uL (0.00-0.03); Imm Gran Pct Auto 0.2 % (0.0-0.4); Lymphocytes Absolute Auto 1.9 X10*3/uL (1.2-4.9); Lymphocytes Percent Auto 28.6 % (20-40); Mean Corpuscular HGB Conc 31.2 g/dl (31.0-36.0); Mean Corpuscular Hemoglobin 25.7 pg (27.0-33.0); Mean Corpuscular Volume 82.5 fL (80.0-98.0); Monocytes Absolute Auto 0.8 X10*3/uL (0.1-1.2); Monocytes Percent Auto 12.3 % (2-11); Neutrophils Absolute Auto 3.6 x10*3/uL (2.0-8.3); Platelet Count 274 X10*3/uL (160-400); Red Blood Count 4.74 X10*6/uL (4.60-5.80); Red Cell Distribution Width 14.8 % (11.0-16.0); White Blood Count 6.6 X10*3/uL (4.8-10.8)
[2023-06-05 12:32] LABS: Estimated Average Glucose 220 mg/dL; Hemoglobin A1c % 9.3 %
[2023-06-05 13:06] LABS: Alanine Aminotransferase 16 U/L (0-40); Albumin Level 4.2 g/dL (3.5-5.0); Alkaline Phosphatase 83 U/L (39-117); Anion Gap 16 (12-20); Aspartate Amino Transferase 19 U/L (5-37); Bilirubin Total 0.3 mg/dL (0.0-1.0); Blood Urea Nitrogen 18 mg/dL (9-16); Calcium 9.2 mg/dL (8.4-10.2); Carbon Dioxide 24 mmol/L (22-29); Chloride 103 mmol/L (96-108); Cholesterol 145 mg/dL; Estimated Glomerular Filt Rate > 60; Glucose Random 151 mg/dL (60-115); HDL Cholesterol 35 mg/dL; LDL Cholesterol Calculated 35 mg/dl; Sodium 139 mmol/L (135-145); Total Protein 7.6 g/dL (6.5-8.0); Triglycerides 378 mg/dL
[2023-06-05 13:23] LABS: Thyroid Stimulating Hormone 1.56 uIU/mL (0.32-4.0)
[2023-06-05 13:31] LABS: Folate 13.6 ng/mL (> or = 4.0); Vitamin B12 651 pg/mL (200-900)
[2023-06-05 14:03] LABS: Creatinine Urine 99.35 mg/dL; Microalbum/Creatinine Ratio Ur 21.1 ug/mg cr
== END 2023-06-05 11:02 | disposition home or self-care (01) ==
LOC: HO.LAB 11:01
PROVIDERS: PCP Internal Medicine; Visit Provider Internal Medicine
DX: E03.9 Hypothyroidism, unspecified (principal); E11.65 Type 2 diabetes mellitus with hyperglycemia; E78.00 Pure hypercholesterolemia, unspecified; I10 Essential (primary) hypertension
CPT/HCPCS: 36415; 80053; 80061; 82043; 82607; 82746; 83036; 84443; 85025

== ENCOUNTER 2023-06-20 11:29 | Outpatient (REF) | payer OTHER, SELFPAY ==
[2023-06-20 12:06] LABS: Estimated Average Glucose 214 mg/dL; Hemoglobin A1c % 9.1 %
[2023-06-20 12:26] LABS: Alanine Aminotransferase 14 U/L (0-40); Albumin Level 4.6 g/dL (3.5-5.0); Alkaline Phosphatase 95 U/L (39-117); Anion Gap 14 (12-20); Aspartate Amino Transferase 19 U/L (5-37); Bilirubin Total 0.3 mg/dL (0.0-1.0); Blood Urea Nitrogen 16 mg/dL (9-16); Calcium 10.2 mg/dL (8.4-10.2); Carbon Dioxide 27 mmol/L (22-29); Chloride 102 mmol/L (96-108); Estimated Glomerular Filt Rate 57; Glucose Random 184 mg/dL (60-115); Potassium 4.6 mmol/L (3.3-5.1); Sodium 138 mmol/L (135-145); Total Protein 8.2 g/dL (6.5-8.0)
== END 2023-06-20 11:30 | disposition home or self-care (01) ==
LOC: HO.LAB 11:29
PROVIDERS: PCP Internal Medicine; Visit Provider Internal Medicine
DX: E03.9 Hypothyroidism, unspecified (principal); E11.65 Type 2 diabetes mellitus with hyperglycemia; E78.1 Pure hyperglyceridemia; L84 Corns and callosities; M25.511 Pain in right shoulder
CPT/HCPCS: 36415; 80053; 83036

== ENCOUNTER 2023-07-03 14:10 | Outpatient (AMB) | payer OTHER, SELFPAY ==
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
== END 2023-07-03 14:47 | disposition home or self-care (01) ==
LOC: HO.HUSH 14:10
PROVIDERS: PCP Internal Medicine; Visit Provider Urology
DX: N32.0 Bladder-neck obstruction (principal); N32.81 Overactive bladder; C61 Malignant neoplasm of prostate
CPT/HCPCS: 99214

== ENCOUNTER → 2023-07-03 14:10 | Outpatient (BNVA) | payer OTHER, SELFPAY | PROVIDERS: PCP Internal Medicine; Visit Provider Urology | DX: C61 Malignant neoplasm of prostate (principal); N28.1 Cyst of kidney, acquired; N32.0 Bladder-neck obstruction; N32.81 Overactive bladder; R39.15 Urgency of urination; N40.1 Benign prostatic hyperplasia with lower urinary tract symptoms; N13.8 Other obstructive and reflux uropathy; E11.69 Type 2 diabetes mellitus with other specified complication; Z79.82 Long term (current) use of aspirin; Z79.4 Long term (current) use of insulin; Z79.899 Other long term (current) drug therapy | CPT/HCPCS: 99212 ==

== ENCOUNTER 2023-10-02 10:56 | Outpatient (REF) | payer OTHER, SELFPAY ==
[2023-10-02 11:59] LABS: Estimated Average Glucose 220 mg/dL; Hemoglobin A1c % 9.3 % (<6.0)
[2023-10-02 12:25] LABS: Alanine Aminotransferase 16 U/L (0-40); Albumin Level 4.4 g/dL (3.5-5.0); Alkaline Phosphatase 83 U/L (39-117); Anion Gap 14 (12-20); Aspartate Amino Transferase 25 U/L (5-37); Bilirubin Total 0.3 mg/dL (0.0-1.0); Blood Urea Nitrogen 26 mg/dL (9-16); Calcium 9.4 mg/dL (8.4-10.2); Carbon Dioxide 23 mmol/L (22-29); Chloride 105 mmol/L (96-108); Estimated Glomerular Filt Rate > 60; Glucose Random 176 mg/dL (60-115); Potassium 3.5 mmol/L (3.3-5.1); Sodium 138 mmol/L (135-145)
== END 2023-10-02 10:57 | disposition home or self-care (01) ==
LOC: HO.LAB 10:56
PROVIDERS: PCP Internal Medicine; Visit Provider Internal Medicine
DX: E11.65 Type 2 diabetes mellitus with hyperglycemia (principal)
CPT/HCPCS: 36415; 80053; 83036

== ENCOUNTER 2024-02-08 12:20 | Outpatient (REF) | payer OTHER, SELFPAY ==
[2024-02-08 14:27] LABS: PSA,Total (Free>4and<10) 5.69 ng/mL (0.00-4.00)
[2024-02-11 09:49] LABS: Free Prostate Spec Ag 0.5 ng/mL; Percent Free Prostate Spec Ag 9 % (calc) (>25); Prostate Specific Ag Total 5.6 ng/mL (< OR = 4.0)
== END 2024-02-08 12:21 | disposition home or self-care (01) ==
LOC: HO.LAB 12:20
PROVIDERS: PCP Internal Medicine; Visit Provider Urology
DX: C61 Malignant neoplasm of prostate (principal); Z12.5 Encounter for screening for malignant neoplasm of prostate
CPT/HCPCS: 36415; 84153; 84154

== ENCOUNTER 2024-02-12 11:48 | Outpatient (AMB) | payer OTHER, SELFPAY ==
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
== END 2024-02-12 12:29 | disposition home or self-care (01) ==
LOC: HO.HUSH 11:48
PROVIDERS: PCP Internal Medicine; Visit Provider Urology
DX: N32.0 Bladder-neck obstruction (principal); N32.81 Overactive bladder; C61 Malignant neoplasm of prostate
CPT/HCPCS: 99442

== ENCOUNTER → 2024-02-12 11:48 | Outpatient (BNVA) | payer OTHER, SELFPAY | PROVIDERS: PCP Internal Medicine; Visit Provider Urology ==

== ENCOUNTER 2024-05-16 12:16 | Outpatient (REF) | payer OTHER, SELFPAY ==
[2024-05-16 13:46] LABS: Estimated Average Glucose 255 mg/dL; Hemoglobin A1c % 10.5 % (<6.0)
[2024-05-16 13:59] LABS: Alanine Aminotransferase 17 U/L (0-40); Albumin Level 4.3 g/dL (3.5-5.0); Alkaline Phosphatase 90 U/L (39-117); Anion Gap 11 (12-20); Aspartate Amino Transferase 20 U/L (5-37); Bilirubin Total 0.3 mg/dL (0.0-1.0); Blood Urea Nitrogen 24 mg/dL (9-16); Calcium 9.6 mg/dL (8.4-10.2); Carbon Dioxide 29 mmol/L (22-29); Chloride 104 mmol/L (96-108); Estimated Glomerular Filt Rate > 60; Glucose Random 197 mg/dL (60-115); Potassium 5.2 mmol/L (3.3-5.1); Sodium 139 mmol/L (135-145); Total Protein 7.8 g/dL (6.5-8.0)
[2024-05-16 14:15] LABS: Thyroid Stimulating Hormone 1.28 uIU/mL (0.32-4.0)
== END 2024-05-16 12:17 | disposition home or self-care (01) ==
LOC: HO.LAB 12:16
PROVIDERS: PCP Internal Medicine; Visit Provider Internal Medicine
DX: E03.9 Hypothyroidism, unspecified (principal); E11.65 Type 2 diabetes mellitus with hyperglycemia; E78.00 Pure hypercholesterolemia, unspecified; F32.5 Major depressive disorder, single episode, in full remission
CPT/HCPCS: 36415; 80053; 83036; 84443

== ENCOUNTER 2024-07-25 11:19 | Outpatient (REF) | payer OTHER, SELFPAY ==
[2024-07-25 11:41] LABS: MANUAL DIFF FLAG NO
[2024-07-25 12:04] LABS: Basophils Percent Auto 0.5 % (0-2); Eosinophils Absolute Auto 0.2 X10*3/uL (0.0-0.4); Eosinophils Percent Auto 3.1 % (0-4); Hemoglobin 12.5 g/dl (14.0-18.0); Imm Gran Abs Auto 0.04 X10*3/uL (0.00-0.03); Imm Gran Pct Auto 0.5 % (0.0-0.4); Lymphocytes Percent Auto 25.8 % (20-40); Mean Corpuscular HGB Conc 32.1 g/dl (31.0-36.0); Mean Corpuscular Hemoglobin 25.8 pg (27.0-33.0); Mean Corpuscular Volume 80.4 fL (80.0-98.0); Mean Platelet Volume 9.4 fL (9.4-12.4); Monocytes Absolute Auto 0.9 X10*3/uL (0.1-1.2); Neutrophils Absolute Auto 4.5 x10*3/uL (2.0-8.3); Neutrophils Percent Auto 58.1 % (45-73); Platelet Count 291 X10*3/uL (160-400); Red Blood Count 4.85 X10*6/uL (4.60-5.80); Red Cell Distribution Width 13.7 % (11.0-16.0); White Blood Count 7.8 X10*3/uL (4.8-10.8)
[2024-07-25 12:30] LABS: Estimated Average Glucose 192 mg/dL; Hemoglobin A1c % 8.3 % (<6.0)
[2024-07-25 12:52] LABS: Alanine Aminotransferase 12 U/L (0-40); Albumin Level 4.3 g/dL (3.5-5.0); Alkaline Phosphatase 82 U/L (39-117); Anion Gap 14 (12-20); Aspartate Amino Transferase 19 U/L (5-37); Bilirubin Total 0.3 mg/dL (0.0-1.0); Blood Urea Nitrogen 35 mg/dL (9-16); Calcium 9.9 mg/dL (8.4-10.2); Carbon Dioxide 25 mmol/L (22-29); Chloride 102 mmol/L (96-108); Cholesterol 147 mg/dL (<200); Estimated Glomerular Filt Rate 58; Glucose Random 160 mg/dL (60-115); HDL Cholesterol 32 mg/dL (>40); LDL Cholesterol Calculated 51 mg/dL (<100); Potassium 4.9 mmol/L (3.3-5.1); Sodium 136 mmol/L (135-145); Total Protein 7.7 g/dL (6.5-8.0); Triglycerides 321 mg/dL (<150)
[2024-07-25 13:09] LABS: PSA,Total (Free>4and<10) 4.77 ng/mL (0.00-4.00)
[2024-07-25 13:24] LABS: Folate 9.1 ng/mL (> or = 4.0); Vitamin B12 366 pg/mL (200-900)
[2024-07-25 14:22] LABS: Creatinine Urine 74.17 mg/dL; Microalbum/Creatinine Ratio Ur 12.1 ug/mg cr (<30)
[2024-07-29 11:08] LABS: Free Prostate Spec Ag 0.4 ng/mL; Percent Free Prostate Spec Ag 10 % (calc) (>25); Prostate Specific Ag Total 4.1 ng/mL (< OR = 4.0)
== END 2024-07-25 11:20 | disposition home or self-care (01) ==
LOC: HO.LAB 11:19
PROVIDERS: Absent Provider Urology; PCP Internal Medicine; Visit Provider Internal Medicine
DX: Z12.5 Encounter for screening for malignant neoplasm of prostate (principal); C61 Malignant neoplasm of prostate; E03.9 Hypothyroidism, unspecified; E11.65 Type 2 diabetes mellitus with hyperglycemia; E78.00 Pure hypercholesterolemia, unspecified; Z91.199 Patient's noncompliance with other medical treatment and regimen due to unspecified reason
CPT/HCPCS: 36415; 80053; 80061; 82043; 82570; 82607; 82746; 83036; 84153; 84154; 85025

== ENCOUNTER 2024-07-29 14:34 | Outpatient (AMB) | payer OTHER, SELFPAY ==
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
== END 2024-07-29 15:49 | disposition home or self-care (01) ==
PROVIDERS: PCP Internal Medicine; Visit Provider Urology
DX: N28.1 Cyst of kidney, acquired (principal); C61 Malignant neoplasm of prostate
CPT/HCPCS: 99213

== ENCOUNTER → 2024-07-29 14:34 | Outpatient (BNVA) | payer OTHER, SELFPAY | PROVIDERS: PCP Internal Medicine; Visit Provider Urology | DX: N28.1 Cyst of kidney, acquired (principal); C61 Malignant neoplasm of prostate | CPT/HCPCS: 51798; 81003; 99212 ==

== ENCOUNTER 2025-03-24 14:31 | Outpatient (REF) | payer OTHER, SELFPAY ==
--- NOTE | ~2025-03-24 | US_ITS ---
CLINICAL HISTORY: N28.1 - Cyst of kidney, acquired US Renal Comparison: None Findings: Right kidney normal size and echotexture, 11.4 cm length. Left kidney normal size and echotexture, 11.1 cm length. 10 mm simple lower polar exophytic cyst. 27 mm mildly collapsed left renal exophytic cyst with 1 or 2 hairline thin septation/s Per welding technician not, e this cyst measures smaller than the 2021 MRI report (actual images were not available for comparison). No hydronephrosis. IMPRESSION: 7 mm mildly collapsed left renal exophytic cyst with 1 or 2 hairline thin septation/s. Per welding technician note, this cyst measures smaller than the 202 MRI report (actual images were not available for comparison). This document has been electronically signed by: Alesia Newman MD on 03/26/2025 11:33:25
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
== END 2025-03-24 14:32 | disposition home or self-care (01) ==
LOC: HO.US 14:31
PROVIDERS: PCP Internal Medicine; Visit Provider Urology
DX: N28.1 Cyst of kidney, acquired (principal)
CPT/HCPCS: 76775

== ENCOUNTER → 2025-03-24 14:34 | Outpatient (BNV) | payer OTHER, SELFPAY | PROVIDERS: PCP Internal Medicine; Visit Provider Radiology Diagnostic Radiology | DX: N28.1 Cyst of kidney, acquired (principal) | CPT/HCPCS: 76775 ==

== ENCOUNTER 2025-03-27 09:50 | Outpatient (REF) | payer OTHER, SELFPAY ==
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
[2025-03-27 11:00] LABS: Estimated Average Glucose 214 mg/dL; Hemoglobin A1C 245.1776 umol/L; Hemoglobin A1c % 9.1 % (<6.0); Total Hemoglobin (HGBA1C) 3244.7652 umol/L
[2025-03-27 11:18] LABS: Alanine Aminotransferase 21 U/L (0-40); Albumin Level 4.2 g/dL (3.5-5.0); Alkaline Phosphatase 93 U/L (39-117); Anion Gap 12 (12-20); Aspartate Amino Transferase 30 U/L (5-37); Bilirubin Total 0.3 mg/dL (0.0-1.0); Blood Urea Nitrogen 18 mg/dL (9-16); Calcium 8.9 mg/dL (8.4-10.2); Carbon Dioxide 26 mmol/L (22-29); Chloride 106 mmol/L (96-108); Estimated Glomerular Filt Rate > 60; Glucose Random 118 mg/dL (60-115); Potassium 4.1 mmol/L (3.3-5.1); Sodium 140 mmol/L (135-145); Total Protein 7.6 g/dL (6.5-8.0)
[2025-03-27 11:37] LABS: Thyroid Stimulating Hormone 3.13 uIU/mL (0.32-4.0)
[2025-03-27 12:17] LABS: Creatinine Urine 77.53 mg/dL; Microalbum/Creatinine Ratio Ur 16.7 ug/mg cr (<30)
== END 2025-03-27 09:51 | disposition home or self-care (01) ==
LOC: HO.LAB 09:50
PROVIDERS: Absent Provider Urology; PCP Internal Medicine; Visit Provider Internal Medicine
DX: C61 Malignant neoplasm of prostate (principal); Z12.5 Encounter for screening for malignant neoplasm of prostate; E03.9 Hypothyroidism, unspecified; E11.9 Type 2 diabetes mellitus without complications; I10 Essential (primary) hypertension
CPT/HCPCS: 36415; 80053; 82043; 82570; 83036; 84153; 84443

== ENCOUNTER 2025-04-10 09:29 | Outpatient (AMB) | payer OTHER, SELFPAY ==
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
== END 2025-04-10 10:29 | disposition home or self-care (01) ==
PROVIDERS: PCP Internal Medicine; Visit Provider Urology
DX: C61 Malignant neoplasm of prostate (principal); N32.81 Overactive bladder
CPT/HCPCS: 99214; G2211

== ENCOUNTER → 2025-04-10 09:29 | Outpatient (BNVA) | payer OTHER, SELFPAY | PROVIDERS: PCP Internal Medicine; Visit Provider Urology | DX: C61 Malignant neoplasm of prostate (principal); N32.81 Overactive bladder | CPT/HCPCS: 51798; 99212 ==

== ENCOUNTER 2025-07-17 10:16 | Outpatient (REF) | payer OTHER, SELFPAY ==
[2025-07-17 10:56] LABS: Hemoglobin A1C 260.7545 umol/L; Total Hemoglobin (HGBA1C) 3365.1037 umol/L
[2025-07-17 11:39] LABS: Alanine Aminotransferase 16 U/L (0-40); Albumin Level 4.6 g/dL (3.5-5.0); Alkaline Phosphatase 113 U/L (39-117); Anion Gap 15 (12-20); Aspartate Amino Transferase 28 U/L (5-37); Blood Urea Nitrogen 22 mg/dL (9-16); Calcium 9.5 mg/dL (8.4-10.2); Carbon Dioxide 24 mmol/L (22-29); Chloride 106 mmol/L (96-108); Estimated Glomerular Filt Rate > 60; Potassium 4.0 mmol/L (3.3-5.1); Sodium 141 mmol/L (135-145); Total Protein 8.1 g/dL (6.5-8.0)
== END 2025-07-17 10:17 | disposition home or self-care (01) ==
LOC: HO.LAB 10:16
PROVIDERS: Absent Provider Urology; PCP Internal Medicine; Visit Provider Internal Medicine
DX: C61 Malignant neoplasm of prostate (principal); I10 Essential (primary) hypertension; E11.9 Type 2 diabetes mellitus without complications; E03.9 Hypothyroidism, unspecified
CPT/HCPCS: 36415; 80053; 83036

== ENCOUNTER 2025-08-06 13:12 | Outpatient (REF) | payer OTHER, SELFPAY ==
[2025-08-06 14:30] LABS: PSA,Total (Free>4and<10) 6.31 ng/mL (0.00-4.00)
[2025-08-08 06:09] LABS: Free Prostate Spec Ag 0.5 ng/mL; Percent Free Prostate Spec Ag 9 % (calc) (>25)
== END 2025-08-06 13:13 | disposition home or self-care (01) ==
LOC: HO.LAB 13:12
PROVIDERS: PCP Internal Medicine; Visit Provider Urology
DX: C61 Malignant neoplasm of prostate (principal); Z12.5 Encounter for screening for malignant neoplasm of prostate
CPT/HCPCS: 36415; 84153; 84154

== ENCOUNTER → 2025-08-11 08:04 | Outpatient (BNV) | payer OTHER, SELFPAY | PROVIDERS: PCP Internal Medicine; Visit Provider Radiology Diagnostic Radiology | DX: N40.0 Benign prostatic hyperplasia without lower urinary tract symptoms (principal) | CPT/HCPCS: 72197 ==

== ENCOUNTER 2025-08-11 08:28 | Outpatient (REF) | payer OTHER, SELFPAY ==
--- NOTE | ~2025-08-11 | MR_ITS ---
EXAMINATION: MR PROSTATE WITHOUT THEN WITH IV CONTRAST HISTORY: C61 - Malignant neoplasm of prostate TECHNIQUE: 1.5T body coil survey of the pelvis was performed. Phase array coil imaging of the prostate was performed in multiplanar high resolution axial, coronal, sagittal fast spin echo T2 and axial T1 weighted imaging sequences. Axial diffusion imaging at intermediate and high field performed with ADC mapping. Next, 9 mL Gadavist was given by intravenous infusion, and dynamic axial imaging performed. 3-D reconstructions and post-processing were not performed as no discrete lesion was identified. COMPARISON: There are no prior studies available for comparison. CLINICAL DATA: Most recent PSA: 6.31 ng/mL on 08/06/2025. PSA Density: 0.16 ng/mL squared Prostate Biopsy: Positive biopsy 11/2019 with a [place] score of 6. FINDINGS: Prostate size: 4.2 x 4.9 x 3.7 cm. Calculated prostate volume is 39.6 mL. Hemorrhage: None. Transitional Zone: There is moderate heterogeneous nodular hypertrophy of the transitional zone. There is a partially extruded BPH nodule on the left at the base. Peripheral Zone: The peripheral zone demonstrates heterogeneously decreased T2 signal intensity which can be seen in the setting of prostatitis of scarring. No discrete focus of abnormal signal intensity is identified. There are no foci of restricted diffusion. Seminal Vesicles/Ejaculatory Ducts: Symmetric and normal in signal and caliber. Pelvic Lymph Nodes: No obturator or internal iliac lymph nodes meeting size criteria for adenopathy. Marrow Signal: Normal marrow signal and enhancement without focal lesion identified. MR/MR Prostate wo/w con IMPRESSION: No discrete focus of abnormal signal intensity is identified to suggest clinically significant prostate carcinoma. PI-RADS 2: Low (clinically significant cancer is unlikely to be present) PI-RADS Assessment Categories PI-RADS 1: Very low (clinically significant cancer is highly unlikely to be present) PI-RADS 2: Low (clinically significant cancer is unlikely to be present) PI-RADS 3: Intermediate (the presence of clinically significant cancer is equivocal) PI-RADS 4: High (clinically significant cancer is likely to be present) PI-RADS 5: Very high (clinically significant cancer is highly likely to be present) [employer]. MR Prostate Imaging Reporting and Data System version 2.1. [email or web address] Electronically signed by: Florentin Babcock MD 08/11/2025 09:55 AM EDT RP
== END 2025-08-11 08:29 | disposition home or self-care (01) ==
LOC: HO.MRI 08:28
PROVIDERS: PCP Internal Medicine; Visit Provider Urology
DX: C61 Malignant neoplasm of prostate (principal)
CPT/HCPCS: 72197; 76377; A9585

== ENCOUNTER 2025-08-12 13:26 | Outpatient (AMB) | payer OTHER, SELFPAY ==
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
== END 2025-08-12 14:02 | disposition home or self-care (01) ==
LOC: HO.HUSH 13:27
PROVIDERS: PCP Internal Medicine; Visit Provider Urology
DX: N28.1 Cyst of kidney, acquired (principal); N32.81 Overactive bladder; C61 Malignant neoplasm of prostate
CPT/HCPCS: 99213; G2211

== ENCOUNTER → 2025-08-12 13:26 | Outpatient (BNVA) | payer OTHER, SELFPAY | PROVIDERS: PCP Internal Medicine; Visit Provider Urology | DX: N28.1 Cyst of kidney, acquired (principal); N32.81 Overactive bladder; C61 Malignant neoplasm of prostate | CPT/HCPCS: 51798; 99212 ==